=== PATIENT | female | born 1935 | race Caucasian/White ===

== ENCOUNTER 2024-05-03 17:54 | Inpatient (IN) | payer MEDICARE, OTHER ==
[~2024-05-03 17:54] MED LIST: Iopamidol-370 76% 500 ML MDV (1 ML CHARGE) ONE
[2024-05-03] MEDS ORDERED: hydrALAZINE 20 MG/ML VIAL ONE (17:58)
[2024-05-03] MEDS ORDERED: Lorazepam 2 MG/ML VIAL ONE (18:00)
[2024-05-03] MEDS ORDERED: levETIRAcetam 500 MG (5 mL) VIAL ONE (18:01)
[2024-05-03 18:14] LABS: #Basophils 0.03 10x3/uL (0.0-0.2); %Basophils 0.3 % (0.0-1.0); %Eosinophils 1.8 % (0.0-10.0); %Lymphocytes 25.5 % (21.0-51.0); %Neutrophils 59.3 % (42.0-75.0); Hematocrit 37.4 % (36.0-47.0); Hemoglobin 12.4 g/dL (12.0-16.0); Mean Corpuscular HGB CONC 33.2 g/dL (32.0-36.0); Mean Corpuscular Hemoglobin 31.8 pg (27.0-31.0); Mean Corpuscular Volume 95.9 fL (78.0-98.0); Mean Platelet Volume 10.1 fL (7.4-10.4); Platelet Count 187 10x3/uL (130-400); RBC Distribution Width 14.7 % (11.5-14.5)
[2024-05-03 18:30] LABS: ALT (SGPT) 16 U/L (8-55); AST (SGOT) 24 U/L (5-34); Albumin 3.8 g/dL (3.4-4.8); Alkaline Phosphatase 88 U/L (40-110); Anion Gap 23 mmol/L (10-20); BUN (Urea Nitrogen) 19 mg/dL (9.8-20.1); Bilirubin, Total 0.8 mg/dL (0.2-1.2); Calc. Creatinine Clearance 0 mL/min (70-130); Calcium 9.6 mg/dL (7.8-10.44); Carbon Dioxide 17 mmol/L (23-31); Chloride 104 mmol/L (98-107); Estimated GFR 59; Globulin 3.1 g/dL (2.4-3.5); Glucose 143 mg/dL (83-110); Potassium 3.4 mmol/L (3.5-5.1); Protein, Total 6.9 g/dL (5.8-8.1); Sodium 141 mmol/L (136-145)
[2024-05-03 18:36] LABS: Troponin I 0.013 ng/mL (< 0.028)
[2024-05-03 20:59] LABS: Bacteria/HPF None Seen HPF (None Seen); Bilirubin Negative (Negative); Blood, Urine Negative (Negative); CAUTI Indications for Culture Alt mental st,lethar; Clarity Clear (Clear); Glucose, Urine (Dipstick) 30 mg/dL (Negative); Ketone, Urine Negative (Negative); Leukocyte Negative Leu/uL (Negative); Nitrite Negative (Negative); Protein, Urine (Dipstick) Negative (Neg-Trace); RBC/HPF 0-3 HPF (0-3); Specific Gravity, Urine 1.034 (1.002-1.036); Squamous Epithelial None Seen HPF (0-3); Urobilinogen Normal mg/dL (Less than 2); WBC/HPF 0-3 HPF (0-3)
[2024-05-03] MEDS ORDERED: Ondansetron PF 4 MG/2 ML Vial IVP PRN (20:59)
[2024-05-03] MEDS ORDERED: Ondansetron ODT 4 MG TAB PO PRN (20:59)
[2024-05-03] MEDS ORDERED: Acetaminophen 650 MG Suppository PR PRN (20:59)
[2024-05-03 21:01] LABS: Urine Culture Reflex No No
[2024-05-03 21:09] LABS: Lactic Acid 1.4 mmol/L (0.5-2.2)
[2024-05-03 22:26] LABS: Magnesium 1.8 mg/dL (1.6-2.6)
[2024-05-04] MEDS ORDERED: Magnesium 2 GM/50 ML BAG (IN WATER) ONE (00:15)
[2024-05-04] MEDS: Potassium Phosphate 30 MMOL in Sodium Chloride 0.9% 500 ML IVPB SCH (00:23)
[2024-05-04] MEDS: Lactated Ringer's 1,000 ML IV SCH (00:23)
[2024-05-04] MEDS: Magnesium 2 GM/50 ML(in water) 2 GM in Premix 1 BAG IVPB SCH (00:24)
[2024-05-04 02:02] VITALS: BMI 17.7
[2024-05-04 04:01] LABS: #Basophils Less than 0.03 10x3/uL (0.0-0.2); #Eosinphils Less than 0.03 10x3/uL (0.0-0.7); %Basophils 0.1 % (0.0-1.0); %Eosinophils 0.1 % (0.0-10.0); %Lymphocytes 8.5 % (21.0-51.0); %Monocytes 11.6 % (0.0-10.0); %Neutrophils 79.4 % (42.0-75.0); Hematocrit 31.2 % (36.0-47.0); Hemoglobin 10.6 g/dL (12.0-16.0); Mean Corpuscular Hemoglobin 32.2 pg (27.0-31.0); Mean Corpuscular Volume 94.8 fL (78.0-98.0); Mean Platelet Volume 10.8 fL (7.4-10.4); Platelet Count 154 10x3/uL (130-400); RBC Distribution Width 14.6 % (11.5-14.5); Red Blood Cell (RBC) Count 3.29 mill/uL (4.20-5.40)
[2024-05-04 04:24] LABS: Anion Gap 15 mmol/L (10-20); BUN (Urea Nitrogen) 14 mg/dL (9.8-20.1); Calc. Creatinine Clearance 45 mL/min (70-130); Calcium 8.7 mg/dL (7.8-10.44); Carbon Dioxide 23 mmol/L (23-31); Chloride 106 mmol/L (98-107); Estimated GFR 84; Glucose 102 mg/dL (83-110); Sodium 141 mmol/L (136-145)
[2024-05-04 10:12] VITALS: BMI 17.7
[2024-05-04] MEDS: Potassium Chloride 20 MEQ TAB PO SCH (11:46)
[2024-05-04] MEDS: Lorazepam 2 MG/ML VIAL SLOW IVP PRN (11:46)
[2024-05-04] MEDS: levETIRAcetam 500 MG (5 mL) VIAL SLOW IVP SCH (20:26)
[2024-05-04] MEDS ORDERED: hydrALAZINE 20 MG/ML VIAL SLOW IVP SCH (23:45)
[2024-05-05] MEDS: hydrALAZINE 20 MG/ML VIAL SLOW IVP SCH (06:25)
[2024-05-05 07:07] LABS: #Basophils 0.03 10x3/uL (0.0-0.2); %Basophils 0.3 % (0.0-1.0); %Eosinophils 2.4 % (0.0-10.0); %Lymphocytes 9.1 % (21.0-51.0); %Monocytes 10.2 % (0.0-10.0); %Neutrophils 77.7 % (42.0-75.0); Hemoglobin 12.3 g/dL (12.0-16.0); Mean Corpuscular HGB CONC 33.2 g/dL (32.0-36.0); Mean Corpuscular Hemoglobin 31.9 pg (27.0-31.0); Mean Corpuscular Volume 95.9 fL (78.0-98.0); Mean Platelet Volume 10.8 fL (7.4-10.4); Platelet Count 168 10x3/uL (130-400); RBC Distribution Width 14.7 % (11.5-14.5); Red Blood Cell (RBC) Count 3.86 mill/uL (4.20-5.40)
[2024-05-05 07:43] LABS: Anion Gap 16 mmol/L (10-20); BUN (Urea Nitrogen) 8 mg/dL (9.8-20.1); Calc. Creatinine Clearance 47 mL/min (70-130); Calcium 9.1 mg/dL (7.8-10.44); Carbon Dioxide 23 mmol/L (23-31); Chloride 106 mmol/L (98-107); Estimated GFR 85; Glucose 73 mg/dL (83-110); Sodium 142 mmol/L (136-145)
[2024-05-05] MEDS ORDERED: Furosemide 20 MG TAB PO PRN (07:50)
[2024-05-05] MEDS ORDERED: Spironolactone 25 MG TAB PO PRN (07:50)
[2024-05-05] MEDS ORDERED: Diazepam 2 MG TAB PO PRN (07:50)
[2024-05-05] MEDS ORDERED: Lorazepam 2 MG/ML VIAL SLOW IVP SCH (08:00)
[2024-05-05] MEDS ORDERED: Polyethylene Glycol OPTH DROP 15 ML BOT EA EYE PRN (08:08)
[2024-05-05] MEDS: Potassium Chloride 20 MEQ in Premix 1 BAG IVPB SCH (09:18)
[2024-05-05] MEDS: Multivit, Chewable SF 1 TAB PO SCH (13:54)
[2024-05-05] MEDS: Cyanocobalamin (Vitamin B-12) 1,000 MCG TAB PO SCH (13:54)
[2024-05-05] MEDS: Clopidogrel Bisulfate 75 MG TAB PO SCH (13:54)
[2024-05-05] MEDS: Cholecalciferol 1,000 UNITS (25 MCG) TAB PO SCH (13:54)
[2024-05-05] MEDS: Aspirin Chewable 81 MG TAB PO SCH (13:54)
[2024-05-05] MEDS: Thiamine 100 MG TAB PO SCH (13:55)
[2024-05-05] MEDS: NIFEdipine XL 90 MG ER.TAB PO SCH (13:55)
[2024-05-05] MEDS: Sertraline 25 MG TAB PO SCH (13:56)
[2024-05-05] MEDS: Rosuvastatin 10 MG TAB PO SCH (13:56)
[2024-05-05] MEDS: Amiodarone 200 MG TAB PO SCH (13:56)
[2024-05-05] MEDS: hydrALAZINE 20 MG/ML VIAL SLOW IVP PRN (16:46)
[2024-05-05] MEDS: Gabapentin 300 MG CAP PO SCH (21:58)
[2024-05-06] MEDS ORDERED: hydrALAZINE 20 MG/ML VIAL SLOW IVP PRN (02:26)
[2024-05-06 03:59] LABS: #Basophils 0.03 10x3/uL (0.0-0.2); %Basophils 0.3 % (0.0-1.0); %Eosinophils 0.3 % (0.0-10.0); %Monocytes 8.2 % (0.0-10.0); %Neutrophils 85.8 % (42.0-75.0); Hematocrit 40.6 % (36.0-47.0); Hemoglobin 13.5 g/dL (12.0-16.0); Mean Corpuscular HGB CONC 33.3 g/dL (32.0-36.0); Mean Corpuscular Hemoglobin 30.9 pg (27.0-31.0); Mean Corpuscular Volume 92.9 fL (78.0-98.0); Mean Platelet Volume 10.1 fL (7.4-10.4); Platelet Count 181 10x3/uL (130-400); RBC Distribution Width 14.7 % (11.5-14.5); Red Blood Cell (RBC) Count 4.37 mill/uL (4.20-5.40)
[2024-05-06 04:18] LABS: Anion Gap 20 mmol/L (10-20); BUN (Urea Nitrogen) 14 mg/dL (9.8-20.1); Calc. Creatinine Clearance 42 mL/min (70-130); Calcium 9.6 mg/dL (7.8-10.44); Carbon Dioxide 18 mmol/L (23-31); Chloride 106 mmol/L (98-107); Estimated GFR 81; Glucose 98 mg/dL (83-110); Potassium 3.6 mmol/L (3.5-5.1); Sodium 140 mmol/L (136-145)
[2024-05-06] MEDS: Lactated Ringer's 1,000 ML IV SCH (15:26)
[2024-05-06] MEDS: NIFEdipine XL 90 MG ER.TAB PO SCH (15:33)
[2024-05-06] MEDS: Losartan 25 MG TAB PO SCH (15:33)
[2024-05-06] MEDS: Levothyroxine Sodium 50 MCG TAB PO SCH (15:34)
[2024-05-07 04:44] LABS: #Basophils 0.03 10x3/uL (0.0-0.2); %Basophils 0.4 % (0.0-1.0); %Eosinophils 2.4 % (0.0-10.0); %Lymphocytes 12.6 % (21.0-51.0); %Neutrophils 72.2 % (42.0-75.0); Hematocrit 35.7 % (36.0-47.0); Hemoglobin 11.8 g/dL (12.0-16.0); Mean Corpuscular HGB CONC 33.1 g/dL (32.0-36.0); Mean Corpuscular Hemoglobin 31.9 pg (27.0-31.0); Mean Corpuscular Volume 96.5 fL (78.0-98.0); Mean Platelet Volume 10.4 fL (7.4-10.4); Platelet Count 159 10x3/uL (130-400); RBC Distribution Width 14.9 % (11.5-14.5)
[2024-05-07 05:00] LABS: Anion Gap 15 mmol/L (10-20); BUN (Urea Nitrogen) 26 mg/dL (9.8-20.1); Calc. Creatinine Clearance 40 mL/min (70-130); Calcium 8.9 mg/dL (7.8-10.44); Carbon Dioxide 21 mmol/L (23-31); Chloride 108 mmol/L (98-107); Estimated GFR 76; Glucose 77 mg/dL (83-110); Potassium 3.2 mmol/L (3.5-5.1); Sodium 141 mmol/L (136-145)
[2024-05-07] MEDS: Losartan 25 MG TAB PO SCH (08:11)
[2024-05-07] MEDS: Potassium Chloride 20 MEQ in Premix 1 BAG IVPB SCH (12:48)
[2024-05-07 14:09] LABS: Magnesium 1.7 mg/dL (1.6-2.6)
[2024-05-08 04:38] LABS: #Basophils Less than 0.03 10x3/uL (0.0-0.2); %Basophils 0.3 % (0.0-1.0); %Eosinophils 5.3 % (0.0-10.0); %Lymphocytes 13.1 % (21.0-51.0); Hematocrit 34.3 % (36.0-47.0); Mean Corpuscular HGB CONC 32.1 g/dL (32.0-36.0); Mean Corpuscular Hemoglobin 31.7 pg (27.0-31.0); Mean Corpuscular Volume 98.8 fL (78.0-98.0); Mean Platelet Volume 10.6 fL (7.4-10.4); Platelet Count 156 10x3/uL (130-400); RBC Distribution Width 14.9 % (11.5-14.5); Red Blood Cell (RBC) Count 3.47 mill/uL (4.20-5.40)
[2024-05-08 04:52] LABS: Anion Gap 16 mmol/L (10-20); BUN (Urea Nitrogen) 22 mg/dL (9.8-20.1); Calc. Creatinine Clearance 46 mL/min (70-130); Calcium 8.6 mg/dL (7.8-10.44); Carbon Dioxide 19 mmol/L (23-31); Chloride 109 mmol/L (98-107); Estimated GFR 85; Glucose 75 mg/dL (83-110); Potassium 3.5 mmol/L (3.5-5.1); Sodium 140 mmol/L (136-145)
[2024-05-08] MEDS: Magnesium 2 GM/50 ML(in water) 2 GM in Premix 1 BAG IVPB SCH (11:27)
[2024-05-08] MEDS: levETIRAcetam 500 mg/5 ml Oral Solution PO SCH (21:54)
[2024-05-09 03:59] LABS: #Basophils 0.03 10x3/uL (0.0-0.2); %Basophils 0.4 % (0.0-1.0); %Lymphocytes 9.7 % (21.0-51.0); %Monocytes 10.4 % (0.0-10.0); %Neutrophils 75.1 % (42.0-75.0); Hematocrit 36.2 % (36.0-47.0); Mean Corpuscular HGB CONC 33.1 g/dL (32.0-36.0); Mean Corpuscular Hemoglobin 31.4 pg (27.0-31.0); Mean Corpuscular Volume 94.8 fL (78.0-98.0); Mean Platelet Volume 10.5 fL (7.4-10.4); Platelet Count 158 10x3/uL (130-400); RBC Distribution Width 14.7 % (11.5-14.5); Red Blood Cell (RBC) Count 3.82 mill/uL (4.20-5.40)
[2024-05-09 04:24] LABS: Anion Gap 11 mmol/L (10-20); BUN (Urea Nitrogen) 12 mg/dL (9.8-20.1); Calc. Creatinine Clearance 51 mL/min (70-130); Calcium 8.6 mg/dL (7.8-10.44); Carbon Dioxide 23 mmol/L (23-31); Chloride 108 mmol/L (98-107); Estimated GFR 87; Glucose 128 mg/dL (83-110); Potassium 2.8 mmol/L (3.5-5.1); Sodium 139 mmol/L (136-145)
[2024-05-09] MEDS: Potassium Chloride 20 MEQ in Premix 1 BAG IVPB SCH ×2 (10:39→20:56)
[2024-05-09] MEDS: Magnesium 2 GM/50 ML(in water) 2 GM in Premix 1 BAG IVPB SCH (12:50)
[2024-05-09] MEDS: Lactated Ringer's 500 ML IV SCH ×2 (17:12→17:13)
[2024-05-09] MEDS: QUEtiapine 25 MG TAB PO SCH (20:56)
[2024-05-10 05:26] LABS: #Basophils Less than 0.03 10x3/uL (0.0-0.2); %Basophils 0.2 % (0.0-1.0); %Eosinophils 4.3 % (0.0-10.0); %Lymphocytes 12.9 % (21.0-51.0); %Monocytes 9.2 % (0.0-10.0); Hematocrit 35.9 % (36.0-47.0); Hemoglobin 11.7 g/dL (12.0-16.0); Mean Corpuscular HGB CONC 32.6 g/dL (32.0-36.0); Mean Corpuscular Hemoglobin 31.6 pg (27.0-31.0); Mean Platelet Volume 10.5 fL (7.4-10.4); Platelet Count 155 10x3/uL (130-400)
[2024-05-10 05:52] LABS: Anion Gap 10 mmol/L (10-20); BUN (Urea Nitrogen) 9 mg/dL (9.8-20.1); Calc. Creatinine Clearance 48 mL/min (70-130); Calcium 8.5 mg/dL (7.8-10.44); Carbon Dioxide 24 mmol/L (23-31); Chloride 111 mmol/L (98-107); Estimated GFR 86; Glucose 83 mg/dL (83-110); Magnesium 1.9 mg/dL (1.6-2.6); Potassium 3.9 mmol/L (3.5-5.1); Sodium 141 mmol/L (136-145)
[2024-05-10] MEDS: QUEtiapine 25 MG TAB PO SCH ×2 (20:43→20:50)
[2024-05-10] MEDS ORDERED: QUEtiapine 25 MG TAB PO SCH (21:00)
[2024-05-11 04:35] LABS: #Basophils 0.03 10x3/uL (0.0-0.2); %Basophils 0.4 % (0.0-1.0); %Lymphocytes 13.3 % (21.0-51.0); %Monocytes 8.9 % (0.0-10.0); Hemoglobin 11.3 g/dL (12.0-16.0); Mean Corpuscular HGB CONC 32.3 g/dL (32.0-36.0); Mean Corpuscular Volume 95.9 fL (78.0-98.0); Mean Platelet Volume 10.9 fL (7.4-10.4); Platelet Count 155 10x3/uL (130-400); Red Blood Cell (RBC) Count 3.65 mill/uL (4.20-5.40)
[2024-05-11 05:21] LABS: Anion Gap 11 mmol/L (10-20); BUN (Urea Nitrogen) 10 mg/dL (9.8-20.1); Calc. Creatinine Clearance 45 mL/min (70-130); Calcium 8.5 mg/dL (7.8-10.44); Carbon Dioxide 23 mmol/L (23-31); Chloride 110 mmol/L (98-107); Estimated GFR 84; Glucose 79 mg/dL (83-110); Potassium 3.5 mmol/L (3.5-5.1); Sodium 140 mmol/L (136-145)
[2024-05-11] MEDS: Clopidogrel Bisulfate 75 MG TAB PO SCH (09:17)
[2024-05-11] MEDS: QUEtiapine 25 MG TAB PO SCH (18:03)
[2024-05-12 04:39] LABS: #Basophils Less than 0.03 10x3/uL (0.0-0.2); %Basophils 0.1 % (0.0-1.0); %Eosinophils 2.6 % (0.0-10.0); %Lymphocytes 11.5 % (21.0-51.0); %Monocytes 12.1 % (0.0-10.0); %Neutrophils 73.3 % (42.0-75.0); Hematocrit 36.6 % (36.0-47.0); Hemoglobin 11.8 g/dL (12.0-16.0); Mean Corpuscular HGB CONC 32.2 g/dL (32.0-36.0); Mean Corpuscular Hemoglobin 30.9 pg (27.0-31.0); Mean Corpuscular Volume 95.8 fL (78.0-98.0); Platelet Count 135 10x3/uL (130-400); RBC Distribution Width 14.9 % (11.5-14.5); Red Blood Cell (RBC) Count 3.82 mill/uL (4.20-5.40)
[2024-05-12 04:58] LABS: Anion Gap 12 mmol/L (10-20); BUN (Urea Nitrogen) 10 mg/dL (9.8-20.1); Calc. Creatinine Clearance 45 mL/min (70-130); Calcium 8.6 mg/dL (7.8-10.44); Carbon Dioxide 23 mmol/L (23-31); Chloride 109 mmol/L (98-107); Estimated GFR 84; Glucose 83 mg/dL (83-110); Potassium 3.3 mmol/L (3.5-5.1); Sodium 141 mmol/L (136-145)
[2024-05-13 05:07] LABS: #Basophils Less than 0.03 10x3/uL (0.0-0.2); %Basophils 0.3 % (0.0-1.0); %Eosinophils 3.7 % (0.0-10.0); %Neutrophils 65.4 % (42.0-75.0); Hematocrit 33.7 % (36.0-47.0); Mean Corpuscular HGB CONC 32.6 g/dL (32.0-36.0); Mean Corpuscular Hemoglobin 30.7 pg (27.0-31.0); Mean Corpuscular Volume 94.1 fL (78.0-98.0); Mean Platelet Volume 10.8 fL (7.4-10.4); Platelet Count 138 10x3/uL (130-400); RBC Distribution Width 14.7 % (11.5-14.5); Red Blood Cell (RBC) Count 3.58 mill/uL (4.20-5.40)
[2024-05-13 05:18] LABS: ALT (SGPT) 14 U/L (8-55); AST (SGOT) 19 U/L (5-34); Albumin 2.4 g/dL (3.4-4.8); Alkaline Phosphatase 66 U/L (40-110); Anion Gap 13 mmol/L (10-20); BUN (Urea Nitrogen) 12 mg/dL (9.8-20.1); Bilirubin, Total 0.6 mg/dL (0.2-1.2); Calc. Creatinine Clearance 44 mL/min (70-130); Calcium 8.6 mg/dL (7.8-10.44); Carbon Dioxide 24 mmol/L (23-31); Chloride 108 mmol/L (98-107); Estimated GFR 84; Globulin 2.4 g/dL (2.4-3.5); Glucose 82 mg/dL (83-110); Potassium 3.3 mmol/L (3.5-5.1); Protein, Total 4.8 g/dL (5.8-8.1); Sodium 142 mmol/L (136-145)
[2024-05-13] MEDS: Ibuprofen 200 MG TAB PO PRN (05:36)
[2024-05-13] MEDS: Acetaminophen 325 MG TAB PO PRN (05:37)
[2024-05-13] MEDS ORDERED: Aripiprazole 2 MG TAB PO SCH (15:45)
[2024-05-13] MEDS: NIFEdipine XL 60 MG ER.TAB PO SCH (16:33)
[2024-05-13] MEDS ORDERED: QUEtiapine 25 MG TAB PO SCH (21:00)
[2024-05-13] MEDS: Amiodarone 200 MG TAB PO SCH (21:59)
[2024-05-13] MEDS: Rosuvastatin 10 MG TAB PO SCH (22:00)
[2024-05-13] MEDS: Sertraline 25 MG TAB PO SCH (22:01)
[2024-05-13] MEDS: Aripiprazole 2 MG TAB PO SCH (22:01)
[2024-05-14] MEDS: Acetaminophen 500 MG TAB PO PRN (03:58)
[2024-05-14 04:33] LABS: ALT (SGPT) 17 U/L (8-55); AST (SGOT) 20 U/L (5-34); Alkaline Phosphatase 82 U/L (40-110); Anion Gap 13 mmol/L (10-20); BUN (Urea Nitrogen) 8 mg/dL (9.8-20.1); Bilirubin, Total 0.7 mg/dL (0.2-1.2); Calc. Creatinine Clearance 45 mL/min (70-130); Carbon Dioxide 22 mmol/L (23-31); Chloride 105 mmol/L (98-107); Estimated GFR 85; Globulin 2.9 g/dL (2.4-3.5); Glucose 98 mg/dL (83-110); Protein, Total 5.9 g/dL (5.8-8.1); Sodium 137 mmol/L (136-145)
[2024-05-14 04:42] LABS: #Basophils Less than 0.03 10x3/uL (0.0-0.2); %Basophils 0.1 % (0.0-1.0); %Eosinophils 3.2 % (0.0-10.0); %Lymphocytes 12.8 % (21.0-51.0); %Monocytes 8.9 % (0.0-10.0); %Neutrophils 74.5 % (42.0-75.0); Hematocrit 36.2 % (36.0-47.0); Hemoglobin 11.8 g/dL (12.0-16.0); Mean Corpuscular HGB CONC 32.6 g/dL (32.0-36.0); Mean Corpuscular Hemoglobin 31.6 pg (27.0-31.0); Mean Corpuscular Volume 97.1 fL (78.0-98.0); Mean Platelet Volume 10.7 fL (7.4-10.4); Platelet Count 172 10x3/uL (130-400); RBC Distribution Width 14.9 % (11.5-14.5); Red Blood Cell (RBC) Count 3.73 mill/uL (4.20-5.40)
[2024-05-14] MEDS: NIFEdipine XL 60 MG ER.TAB PO SCH (09:40)
[2024-05-14] MEDS ORDERED: Electrolyte Replacement Protocol 1 EACH FS SCH (09:45)
[2024-05-14] MEDS: Potassium Chloride 20 MEQ TAB PO SCH (09:50)
[2024-05-14] MEDS ORDERED: Aripiprazole 2 MG TAB PO SCH (21:00)
[2024-05-14] MEDS: Amiodarone 200 MG TAB PO SCH (22:32)
[2024-05-15 05:12] LABS: #Basophils Less than 0.03 10x3/uL (0.0-0.2); %Basophils 0.2 % (0.0-1.0); %Lymphocytes 13.4 % (21.0-51.0); %Monocytes 11.9 % (0.0-10.0); %Neutrophils 71.2 % (42.0-75.0); Hematocrit 34.4 % (36.0-47.0); Hemoglobin 11.2 g/dL (12.0-16.0); Mean Corpuscular HGB CONC 32.6 g/dL (32.0-36.0); Mean Corpuscular Hemoglobin 31.8 pg (27.0-31.0); Mean Corpuscular Volume 97.7 fL (78.0-98.0); Mean Platelet Volume 10.1 fL (7.4-10.4); Platelet Count 158 10x3/uL (130-400); RBC Distribution Width 14.9 % (11.5-14.5); Red Blood Cell (RBC) Count 3.52 mill/uL (4.20-5.40)
[2024-05-15 05:56] LABS: ALT (SGPT) 14 U/L (8-55); AST (SGOT) 17 U/L (5-34); Albumin 2.7 g/dL (3.4-4.8); Alkaline Phosphatase 75 U/L (40-110); Anion Gap 8 mmol/L (10-20); BUN (Urea Nitrogen) 6 mg/dL (9.8-20.1); Bilirubin, Total 0.5 mg/dL (0.2-1.2); Calc. Creatinine Clearance 48 mL/min (70-130); Calcium 8.6 mg/dL (7.8-10.44); Carbon Dioxide 24 mmol/L (23-31); Chloride 109 mmol/L (98-107); Estimated GFR 86; Globulin 2.6 g/dL (2.4-3.5); Glucose 88 mg/dL (83-110); Potassium 3.3 mmol/L (3.5-5.1); Protein, Total 5.3 g/dL (5.8-8.1); Sodium 138 mmol/L (136-145)
[2024-05-15] MEDS: Potassium Chloride 20 MEQ TAB PO SCH (10:05)
[2024-05-15] MEDS: Losartan 25 MG TAB PO SCH (15:18)
[2024-05-15] MEDS: Amiodarone 200 MG TAB PO SCH (21:52)
[2024-05-16 05:06] LABS: #Basophils Less than 0.03 10x3/uL (0.0-0.2); %Basophils 0.3 % (0.0-1.0); %Eosinophils 3.9 % (0.0-10.0); %Lymphocytes 17.4 % (21.0-51.0); %Monocytes 13.2 % (0.0-10.0); %Neutrophils 64.6 % (42.0-75.0); Hematocrit 36.4 % (36.0-47.0); Hemoglobin 11.6 g/dL (12.0-16.0); Mean Corpuscular HGB CONC 31.9 g/dL (32.0-36.0); Mean Corpuscular Hemoglobin 30.8 pg (27.0-31.0); Mean Corpuscular Volume 96.6 fL (78.0-98.0); Mean Platelet Volume 10.1 fL (7.4-10.4); Platelet Count 171 10x3/uL (130-400); RBC Distribution Width 14.6 % (11.5-14.5); Red Blood Cell (RBC) Count 3.77 mill/uL (4.20-5.40)
[2024-05-16 05:13] LABS: ALT (SGPT) 13 U/L (8-55); AST (SGOT) 16 U/L (5-34); Albumin 2.7 g/dL (3.4-4.8); Alkaline Phosphatase 71 U/L (40-110); Anion Gap 10 mmol/L (10-20); BUN (Urea Nitrogen) 6 mg/dL (9.8-20.1); Bilirubin, Total 0.5 mg/dL (0.2-1.2); Calc. Creatinine Clearance 49 mL/min (70-130); Calcium 8.7 mg/dL (7.8-10.44); Carbon Dioxide 24 mmol/L (23-31); Chloride 106 mmol/L (98-107); Estimated GFR 86; Globulin 2.6 g/dL (2.4-3.5); Glucose 84 mg/dL (83-110); Magnesium 1.6 mg/dL (1.6-2.6); Potassium 3.2 mmol/L (3.5-5.1); Protein, Total 5.3 g/dL (5.8-8.1); Sodium 137 mmol/L (136-145)
[2024-05-16] MEDS: Magnesium 2 GM/50 ML(in water) 2 GM in Premix 1 BAG IVPB SCH (06:21)
[2024-05-16] MEDS: Potassium Chloride 20 MEQ TAB PO SCH (10:09)
[2024-05-16] MEDS: Losartan 25 MG TAB PO SCH (10:11)
[2024-05-16 10:19] LABS: #Basophils Less than 0.03 10x3/uL (0.0-0.2); %Basophils 0.3 % (0.0-1.0); %Lymphocytes 12.9 % (21.0-51.0); %Monocytes 10.9 % (0.0-10.0); %Neutrophils 71.6 % (42.0-75.0); Hematocrit 37.5 % (36.0-47.0); Hemoglobin 12.3 g/dL (12.0-16.0); Mean Corpuscular HGB CONC 32.8 g/dL (32.0-36.0); Mean Corpuscular Volume 94.5 fL (78.0-98.0); Mean Platelet Volume 10.1 fL (7.4-10.4); Platelet Count 175 10x3/uL (130-400); RBC Distribution Width 14.4 % (11.5-14.5); Red Blood Cell (RBC) Count 3.97 mill/uL (4.20-5.40)
[2024-05-16 10:37] LABS: ALT (SGPT) 14 U/L (8-55); AST (SGOT) 18 U/L (5-34); Alkaline Phosphatase 87 U/L (40-110); Anion Gap 10 mmol/L (10-20); BUN (Urea Nitrogen) 6 mg/dL (9.8-20.1); Bilirubin, Total 0.6 mg/dL (0.2-1.2); Calc. Creatinine Clearance 43 mL/min (70-130); Calcium 8.8 mg/dL (7.8-10.44); Carbon Dioxide 25 mmol/L (23-31); Estimated GFR 84; Globulin 2.9 g/dL (2.4-3.5); Glucose 100 mg/dL (83-110); Potassium 3.3 mmol/L (3.5-5.1); Protein, Total 5.9 g/dL (5.8-8.1); Sodium 137 mmol/L (136-145)
[2024-05-16 10:45] LABS: Chloride 105 mmol/L (98-107)
[2024-05-17 05:08] LABS: #Basophils Less than 0.03 10x3/uL (0.0-0.2); %Basophils 0.2 % (0.0-1.0); %Eosinophils 2.9 % (0.0-10.0); %Lymphocytes 20.2 % (21.0-51.0); %Monocytes 13.1 % (0.0-10.0); %Neutrophils 63.3 % (42.0-75.0); Hematocrit 33.9 % (36.0-47.0); Mean Corpuscular HGB CONC 32.4 g/dL (32.0-36.0); Mean Corpuscular Hemoglobin 31.3 pg (27.0-31.0); Mean Corpuscular Volume 96.6 fL (78.0-98.0); Mean Platelet Volume 10.3 fL (7.4-10.4); Platelet Count 186 10x3/uL (130-400); RBC Distribution Width 14.5 % (11.5-14.5); Red Blood Cell (RBC) Count 3.51 mill/uL (4.20-5.40)
[2024-05-17 05:32] LABS: ALT (SGPT) 12 U/L (8-55); AST (SGOT) 15 U/L (5-34); Albumin 2.6 g/dL (3.4-4.8); Alkaline Phosphatase 77 U/L (40-110); Anion Gap 14 mmol/L (10-20); BUN (Urea Nitrogen) 10 mg/dL (9.8-20.1); Bilirubin, Total 0.4 mg/dL (0.2-1.2); Calc. Creatinine Clearance 42 mL/min (70-130); Calcium 8.5 mg/dL (7.8-10.44); Carbon Dioxide 22 mmol/L (23-31); Chloride 106 mmol/L (98-107); Estimated GFR 81; Globulin 2.5 g/dL (2.4-3.5); Glucose 83 mg/dL (83-110); Potassium 3.6 mmol/L (3.5-5.1); Protein, Total 5.1 g/dL (5.8-8.1); Sodium 138 mmol/L (136-145)
[2024-05-17 15:26] VITALS: BP 101/59; TEMP 98.1
== END 2024-05-17 17:00 | DRG 100 ==
LOC: ERS 17:54 → INTOOBSV 20:43 → ERHOLD 20:43 → 2SE 05-04 01:30 → OBSVTOIN 05-05 18:08
PROVIDERS: ADMIT Student in an Organized Health Care Education/Training Program; ATTEND Internal Medicine
PROC: 4A00X4Z Measurement of Central Nervous Electrical Activity, External Approach (ICD-10-PCS; principal; 2024-05-04)
DX: R56.9 Unspecified convulsions (principal); E43 Unspecified severe protein-calorie malnutrition; E87.20 Acidosis, unspecified; G93.89 Other specified disorders of brain; Z66 Do not resuscitate; Z98.49 Cataract extraction status, unspecified eye; F32.A Depression, unspecified; Z79.899 Other long term (current) drug therapy; Z79.82 Long term (current) use of aspirin; Z86.73 Personal history of transient ischemic attack (TIA), and cerebral infarction without residual deficits; I10 Essential (primary) hypertension; I48.91 Unspecified atrial fibrillation; E87.6 Hypokalemia; M54.50 Low back pain, unspecified
CPT/HCPCS: 0042T; 36415; 36416; 51701; 70450; 70486; 70496; 70498; 71045; 71250; 72080; 80048; 80053; 81001; 83605; 83735; 84146; 84443; 84484; 85025; 93005; 95700; 95712; 95819; 96365; 96375; 96376; G0378; J0360; J1953; J2060; J3475; J3480; J7030; J7120; Q9967